=== PATIENT | female | born 1970 | race Two or more races ===

== ENCOUNTER 2018-03-13 16:09 | Emergency (ER) | payer OTHER ==
[~2018-03-13] VITALS: Ht 157.5 cm; Wt 68.0 kg
[2018-03-13] MEDS ORDERED: IPRATROPIUM BROMIDE 0.5 MG/2.5 ML NEBU ONE (16:23)
[2018-03-13] MEDS ORDERED: ALBUTEROL SULFATE 2.5 MG/ 0.5 ML NEBU ONE (16:24)
[2018-03-13] MEDS ORDERED: ALBU18HF2 INH (16:29)
[2018-03-13] MEDS ORDERED: predniSONE 50 MG TABLET ONE (16:29)
[2018-03-13] MEDS ORDERED: predniSONE 10 MG TABLET ONE (16:29)
[2018-03-13] MEDS ORDERED: ALBUTEROL SULFATE 2.5 MG/3 ML NEBU NEB ONE (16:30)
[2018-03-13] MEDS ORDERED: IPRATROPIUM BROMIDE 0.5 MG/2.5 ML NEBU NEB ONE (16:30)
[2018-03-13] MEDS ORDERED: predniSONE 10 MG TABLET PO ONE (16:30)
[2018-03-13 16:55] LABS: BASOPHILS # (AUTO) 0.1 K/uL (0.0-8.0); BASOPHILS % (AUTO) 0.8 % (0.0-2.0); EOSINOPHILS # (AUTO) 0.7 K/uL (0.0-0.7); EOSINOPHILS % (AUTO) 8.9 % (0.0-7.0); HEMATOCRIT 45.7 % (31.2-41.9); HEMOGLOBIN 15.6 g/dL (10.9-14.3); LYMPHOCYTES # (AUTO) 3.1 K/uL (20.0-40.0); LYMPHOCYTES % (AUTO) 38.6 % (20.5-51.5); MEAN CORPUSCULAR HEMOGLOBIN 33.9 uug (24.7-32.8); MEAN CORPUSCULAR HGB CONC 34 g/dL (32.3-35.6); MEAN CORPUSCULAR VOLUME 99.3 fL (75.5-95.3); MONOCYTES # (AUTO) 0.7 K/uL (2.0-10.0); MONOCYTES % (AUTO) 9.2 % (0.0-11.0); NEUTROPHILS # (AUTO) 3.4 K/uL (1.8-8.9); NEUTROPHILS % (AUTO) 42.5 % (38.5-71.5); PLATELET COUNT (AUTO) 202 K/uL (179-408); WHITE BLOOD COUNT (AUTO) 7.9 K/uL (3.8-11.8)
[2018-03-13 17:04] LABS: CREATININE 0.9 mg/dL (0.6-1.3); POTASSIUM 3.6 mmol/L (3.5-5.1)
--- NOTE | 2018-03-13 17:32 | NUR ---
Pt states feeling so much better, and wishes to be discharged.
--- NOTE | 2018-03-13 17:45 | NUR ---
IV removed. Catheter intact and site benign. Pressure and 4x4 gauze applied to site. No bleeding noted.
[2018-03-13 17:47] VITALS: BP 120/66
--- NOTE | 2018-03-13 17:47 | NUR ---
Patient discharged to home in stable conditon. Written and verbal after care instructions given. Patient verbalizes understanding of instructions.
== END 2018-03-13 17:49 | disposition home or self-care (01) ==
LOC: ER 16:11
DX: J45.909 Unspecified asthma, uncomplicated (principal); R07.89 Other chest pain; Z88.0 Allergy status to penicillin; Z79.899 Other long term (current) drug therapy
CPT/HCPCS: 36415; 71045; 80048; 84484; 85025; 93005 ×2; 94640; 99284; J7512 ×2; 70030-TC; A4663; J3590

== ENCOUNTER 2018-04-03 05:38 | Emergency (ER) | payer OTHER ==
[~2018-04-03] VITALS: Ht 152.4 cm; Wt 67.6 kg
[~2018-04-03 05:38] MED LIST: ALBU18HF2 INH
[2018-04-03] MEDS ORDERED: ALBUTEROL SULFATE 2.5 MG/3 ML NEBU NEB ONE ×2 (06:00→06:15)
[2018-04-03] MEDS ORDERED: ALBUTEROL SULFATE 2.5 MG/3 ML NEBU ONE ×2 (06:01→06:21)
--- NOTE | 2018-04-03 06:02 | NUR ---
Respiratory at bedside.
[2018-04-03] MEDS ORDERED: IPRATROPIUM BROMIDE 0.5 MG/2.5 ML NEBU NEB ONE (06:15)
[2018-04-03] MEDS ORDERED: predniSONE 10 MG TABLET PO ONE (06:15)
[2018-04-03] MEDS ORDERED: IPRATROPIUM BROMIDE 0.5 MG/2.5 ML NEBU ONE (06:21)
[2018-04-03] MEDS ORDERED: predniSONE 20 MG TABLET ONE (06:22)
--- NOTE | 2018-04-03 07:05 | NUR ---
Report given to Kiki REYNAGA.
--- NOTE | 2018-04-03 07:30 | NUR ---
Pt states feeling better and breathing easier.
[2018-04-03 07:35] VITALS: BP 102/54
--- NOTE | 2018-04-03 07:47 | NUR ---
Patient discharged to home in stable conditon. Written and verbal after care instructions given. Patient verbalizes understanding of instructions.
== END 2018-04-03 07:47 | disposition home or self-care (01) ==
LOC: ER 05:39
DX: J45.909 Unspecified asthma, uncomplicated (principal); Z88.0 Allergy status to penicillin; Z79.899 Other long term (current) drug therapy
CPT/HCPCS: 94640; 94644; 99285; J7512; A4663; J3590

== ENCOUNTER 2019-01-11 20:36 | Emergency (ER) | payer OTHER ==
[~2019-01-11] VITALS: Ht 152.4 cm; Wt 63.5 kg
[2019-01-11] MEDS ORDERED: VANCOMYCIN IV 1,000 MG in IV DEXTROSE 5% 250 ML IV ONE (22:00)
[2019-01-11] MEDS ORDERED: diphenhydrAMINE 50 MG/1 ML VIAL IV ONE (22:00)
[2019-01-11] MEDS ORDERED: VANCOMYCIN IV 200 ML ONE (22:18)
[2019-01-11] MEDS ORDERED: diphenhydrAMINE 50 MG/1 ML VIAL ONE (22:18)
--- NOTE | 2019-01-11 23:09 | NUR ---
IV SALINE LOCK DC, DRESSED BLISTER ON R FOREARM COVERED W/ BAND AID Patient discharged to home in stable conditon. Written and verbal after care instructions given. Patient verbalizes understanding of instructions.
[2019-01-11 23:11] VITALS: BP 115/85
== END 2019-01-11 23:12 | disposition home or self-care (01) ==
LOC: ER 20:40
DX: L03.113 Cellulitis of right upper limb (principal); J45.909 Unspecified asthma, uncomplicated; Z88.0 Allergy status to penicillin; Z79.899 Other long term (current) drug therapy
CPT/HCPCS: 96365; 96375; 99283; J1200; J3370; A4663

== ENCOUNTER 2022-04-20 20:19 | Emergency (ER) | payer OTHER ==
[~2022-04-20] VITALS: Wt 64.9 kg
[2022-04-20] MEDS ORDERED: OXYCODONE/APAP 5-325 MG TABLET ONE (20:52)
[2022-04-20] MEDS ORDERED: OXYCODONE/APAP 5-325 MG TABLET PO ONE (21:00)
[2022-04-20] MEDS ORDERED: KETOROLAC TROMETHAMINE 60 MG INJ IM ONE ×2 (21:00→21:01)
[2022-04-20 21:28] LABS: *URINE HCG, QUAL NEGATIVE (NEGATIVE)
[2022-04-20] MEDS ORDERED: HYDR-3980 PO (22:28)
--- NOTE | 2022-04-20 22:44 | NUR ---
Patient discharged to home in stable condition. Written and verbal after care instructions given. Patient verbalizes understanding of instructions. Stressed follow up or return to ER for worsening s/s. Patient is a/ox4, NAD noted. Patient is accompanied by her SO
[2022-04-20 22:45] VITALS: BP 130/87
== END 2022-04-20 22:46 | disposition home or self-care (01) ==
LOC: ER 20:21
DX: S32.039A Unspecified fracture of third lumbar vertebra, initial encounter for closed fracture (principal); W01.0XXA Fall on same level from slipping, tripping and stumbling without subsequent striking against object, initial encounter; Y92.89 Other specified places as the place of occurrence of the external cause; J45.909 Unspecified asthma, uncomplicated; Z88.0 Allergy status to penicillin
CPT/HCPCS: 99284; 84703; 72110; 96372; J1885; A4663

== ENCOUNTER 2023-08-05 13:05 | Emergency (ER) | payer OTHER ==
[~2023-08-05] VITALS: Ht 152.4 cm; Wt 58.5 kg
[~2023-08-05 13:05] MED LIST changes: +HYDR-3980 PO
[2023-08-05] MEDS ORDERED: PRED50TA PO (14:00)
[2023-08-05 14:57] VITALS: BP 127/76; TEMP 97.8; O2SAT 97
== END 2023-08-05 15:03 | disposition home or self-care (01) ==
LOC: ER 13:05
DX: L23.9 Allergic contact dermatitis, unspecified cause (principal); J45.901 Unspecified asthma with (acute) exacerbation; J45.909 Unspecified asthma, uncomplicated; Z79.899 Other long term (current) drug therapy; Z88.0 Allergy status to penicillin
CPT/HCPCS: A4606; A4663

== ENCOUNTER 2024-12-03 12:49 | Emergency (ER) | payer OTHER ==
[~2024-12-03] VITALS: Ht 152.4 cm; Wt 60.8 kg
[~2024-12-03 12:49] MED LIST changes: +PRED50TA PO
[2024-12-03 13:21] LABS: PLATELET COUNT (AUTO) 224 K/uL (179-408); RED BLOOD CELL COUNT(AUTO) 4.14 MIL/uL (3.63-4.92); RED CELL DISTRIBUTION WIDTH 14.1 % (12.3-17.7); WHITE BLOOD COUNT (AUTO) 8.3 K/uL (3.8-11.8)
[2024-12-03 13:29] LABS: CREATININE 0.8 mg/dL (0.6-1.3); SODIUM SERUM 144 mmol/L (136-145); UREA NITROGEN, BLOOD 18 mg/dL (7-18)
[2024-12-03 13:40] LABS: ASPARTATE AMINOTRANSFERASE 15 U/L (15-37); TOTAL PROTEIN, SERUM 6.0 g/dL (6.4-8.2)
[2024-12-03] MEDS ORDERED: SWABABLE VALVE TRANSFER SET EA MC ONE (13:40)
[2024-12-03] MEDS ORDERED: IOHEXOL 350 100 ML INFUS..BTL ONE (13:40)
[2024-12-03] MEDS ORDERED: IV NORMAL SALINE 250 ML IV ONE (13:40)
[2024-12-03] MEDS ORDERED: DEXAMETHASONE SOD PHOSPHATE 10 MG INJ ONE (15:28)
[2024-12-03] MEDS ORDERED: KETOROLAC TROMETHAMINE 15 MG INJ ONE (15:28)
[2024-12-03] MEDS ORDERED: HYDR-3972 PO ×2 (15:29→15:39)
[2024-12-03] MEDS: DEXAMETHASONE SOD PHOSPHATE 4 MG INJ IV ONE (15:30)
[2024-12-03] MEDS: KETOROLAC TROMETHAMINE 15 MG INJ IVP ONE (15:32)
[2024-12-03] MEDS ORDERED: MORPHINE SULFATE 4 MG/1 ML DISP.SYRIN ONE (15:34)
[2024-12-03] MEDS ORDERED: ONDANSETRON 4 MG/2 ML VIAL ONE (15:34)
[2024-12-03] MEDS: ONDANSETRON 4 MG/2 ML VIAL IV ONE (15:35)
[2024-12-03] MEDS: MORPHINE SULFATE 4 MG/1 ML DISP.SYRIN IV ONE (15:37)
[2024-12-03 15:45] VITALS: BP 129/87; O2SAT 96
== END 2024-12-03 16:27 | disposition home or self-care (01) ==
LOC: ER 12:49
DX: R07.89 Other chest pain (principal); M54.2 Cervicalgia; M79.601 Pain in right arm; R53.1 Weakness; R20.0 Anesthesia of skin; G43.909 Migraine, unspecified, not intractable, without status migrainosus; J45.909 Unspecified asthma, uncomplicated; R09.1 Pleurisy; Z79.52 Long term (current) use of systemic steroids; Z88.0 Allergy status to penicillin
CPT/HCPCS: 99285; 70496; 96374; 96375; 71045; 80076; 80048; 83880; 85025; 85379; 85730; 86850; 86900; 86901; 84484 ×2; 36415; 70498; 93005; 70450; J1885; J1100; J2405; Q9967; J2270; A4606; A4663